=== PATIENT | female | born 1970 | race Hispanic/Latino ===

== ENCOUNTER 2018-04-17 08:52 | Emergency (ER) | payer BC ==
[2018-04-17 08:53] VITALS: BMI 35.2
[2018-04-17 09:17] VITALS: TEMP 97.7
--- NOTE | 2018-04-17 09:51 | ED PDOC ---
Arrival/HPI - General Chief Complaint: Female Genitourinary Time Seen by Provider: 04/17/18 09:35 Historian: Patient - History of Present Illness Narrative History of Present Illness (Text): 04/17/18 09:50 47 year old female, with no significant past medical history, presents to the emergency department complaining of continual vaginal bleeding since 03/31/18. Patient reports her last normal menstrual period was a month before that. Patient quit smoking 26 years ago, but occasionally drinks alcohol. Patient reports feeling weak, but denies any fever, chills, chest pain, palpitations, dyspnea on exertion, shortness of breath, abdominal pain, nausea, vomiting, diarrhea, genitourinary symptoms, headache, dizziness, lightheadedness, or any other complaints. PMD: Dr. Cm Time/Duration: Other (18 days) Symptom Onset: Gradual Symptom Course: Unchanged Activities at Onset: Light Context: Home Past Medical History - Provider Review Nursing Documentation Reviewed: Yes - Infectious Disease Hx of Infectious Diseases: None - Tetanus Immunization Tetanus Immunization: Unknown - Past Medical History Past Medical History: No Previous - Psychiatric Hx Depression: No Hx Emotional Abuse: No Hx Physical Abuse: No Hx Substance Use: Yes - Surgical History Hx Section: Yes - Anesthesia Hx Anesthesia: Yes Hx Anesthesia Reactions: No Hx Malignant Hyperthermia: No - Suicidal Assessment Feels Threatened In Home Enviroment: No Family/Social History - Physician Review Nursing Documentation Reviewed: Yes Family/Social History: No Known Family HX Smoking Status: Never Smoked Hx Alcohol Use: No Hx Substance Use: Yes Substance used: occasional marijuana Hx Substance Use Treatment: Yes Allergies/Home Meds Allergies/Adverse Reactions: Allergies No Known Allergies Allergy (Verified 09/25/13 10:41) Review of Systems - Physician Review All systems were reviewed & negative as marked: Yes - Review of Systems Constitutional: absent: Fevers, Other (Chills) Respiratory: absent: SOB Cardiovascular: absent: Chest Pain, PIERRE Gastrointestinal: absent: Abdominal Pain, Nausea, Vomiting Genitourinary Female: Vaginal Bleeding. absent: Dysuria, Frequency, Hematuria Neurological: Other (feels weak). absent: Headache, Dizziness (/lightheadedness ) Physical Exam Vital Signs Reviewed: Yes Vital Signs Temp Pulse Resp BP Pulse Ox 04/17/18 08:53 97.7 F 77 20 116/75 99 Temperature: Afebrile Blood Pressure: Normal Pulse: Regular Respiratory Rate: Normal Appearance: Positive for: Well-Appearing, Non-Toxic, Comfortable Pain Distress: None Mental Status: Positive for: Alert and Oriented X 3 - Systems Exam Head: Present: Atraumatic, Normocephalic Pupils: Present: PERRL Extroacular Muscles: Present: EOMI Conjunctiva: Present: Normal Mouth: Present: Moist Mucous Membranes Neck: Present: Normal Range of Motion Respiratory/Chest: Present: Clear to Auscultation, Good Air Exchange. No: Respiratory Distress, Accessory Muscle Use Cardiovascular: Present: Regular Rate and Rhythm, Normal S1, S2. No: Murmurs Abdomen: No: Tenderness, Distention, Peritoneal Signs Genitourinary/Pelvic Exam: Present: Other (refused due to bleeding) Back: Present: Normal Inspection Upper Extremity: Present: Normal Inspection. No: Cyanosis, Edema Lower Extremity: Present: Normal Inspection. No: Edema Neurological: Present: GCS=15, CN II-XII Intact, Speech Normal Skin: Present: Warm, Dry, Normal Color. No: Rashes Psychiatric: Present: Alert, Oriented x 3, Normal Insight, Normal Concentration Medical Decision Making ED Course and Treatment: 04/17/18 09:51 Impression: 47 year old female presents complaining of continual vaginal bleeding for the past 18 days (03/31/18) and feels weak. Plan: -- Labs -- HCG, Qualitative Urine -- Reassess and disposition Progress Notes: 04/17/18 11:[address] Nelson PROSTHETIC DENTIST who is aware and agrees with the plan. States he will see patient Saturday for outpatient follow up. On re-evaluation, patient is in no acute distress. I have discussed the results and plan with the patient, who expresses understanding. Patient in agreement with plan to be discharged home. Patient is stable for discharge. - Lab Interpretations Lab Results: 04/17/18 10:20 Lab Results 04/17/18 10:20: PT 11.5, INR 1.00, APTT 27.4 04/17/18 10:20: WBC 6.7, RBC 3.69, Hgb 11.4 L, Hct 34.1 L, MCV 92.4, MCH 30.9, MCHC 33.4, RDW 14.0, Plt Count 232, MPV 9.8, Gran % 67.2, Lymph % (Auto) 26.5, [place] % (Auto) 4.6, Eos % (Auto) 1.6, Baso % (Auto) 0.1, Gran # 4.50, Lymph # ( Auto) 1.8, [place] # (Auto) 0.3, Eos # (Auto) 0.1, Baso # (Auto) 0.01 04/17/18 10:00: Urine HCG, Qual Negative I have reviewed the lab results: Yes - Scribe Statement The provider has reviewed the documentation as recorded by the Kahliliberos Townsend Provider Scribe Attestation: All medical record entries made by the Scribe were at my direction and personally dictated by me. I have reviewed the chart and agree that the record accurately reflects my personal performance of the history, physical exam, medical decision making, and the department course for this patient. I have also personally directed, reviewed, and agree with the discharge instructions and disposition. Disposition/Present on Arrival - Present on Arrival Any Indicators Present on Arrival: No History of DVT/PE: No History of Uncontrolled Diabetes: No Urinary Catheter: No History of Decub. Ulcer: No History Surgical Site Infection Following: None - Disposition Have Diagnosis and Disposition been Completed?: Yes Diagnosis: Menorrhagia Disposition: HOME/ ROUTINE Disposition Time: 11:13 Patient Plan: Discharge Condition: GOOD Discharge Instructions (ExitCare): Heavy Periods Prescriptions: MedroxyPROGESTERone [Provera] 10 mg PO DAILY #10 tab Referrals: Aakash Cm MD [Primary Care Provider] - Follow up with primary Hu Nelson MD [Staff Provider] - Follow up with primary Forms: [employer] (Citizen [place])
[2018-04-17 10:29] LABS: BASO # 0.01 K/mm3 (0.0-2.0); BASO % 0.1 % (0.0-3.0); EOS # 0.1 (0.0-0.7); EOS % 1.6 % (1.5-5.0); GRAN # 4.5 (1.4-6.5); GRAN % 67.2 % (50.0-68.0); HEMOGLOBIN 11.4 g/dL (12.0-16.0); LYMPH # 1.8 (1.2-3.4); LYMPH % 26.5 % (22.0-35.0); MEAN CELL VOLUME 92.4 fl (80.0-105.0); MEAN CORPUSCULAR HEMOGLOBIN 30.9 pg (25.0-35.0); MEAN CORPUSCULAR HGB CONC 33.4 g/dl (31.0-37.0); MEAN PLATELET VOLUME 9.8 fl (7.0-11.0); MONO # 0.3 (0.1-0.6); MONO % 4.6 % (1.0-6.0); RBC 3.69 10^6/uL (3.5-6.1); WHITE BLOOD COUNT 6.7 10^3/ul (4.5-11.0)
[2018-04-17 10:37] LABS: PARTIAL THROMBOPLASTIN TIME 27.4 Seconds (25.1-36.5); PROTHROMBIN TIME 11.5 SECONDS (9.4-12.5)
[2018-04-17 11:28] VITALS: BP 117/74; PULSE 74; RESP 18; O2SAT 100
== END 2018-04-17 11:40 | disposition home or self-care (01) ==
LOC: ED 08:52
DX: N92.0 Excessive and frequent menstruation with regular cycle (principal)

== ENCOUNTER 2018-12-31 12:12 | Emergency (ER) | payer BC ==
[2018-12-31 12:35] VITALS: BMI 39.9
[2018-12-31 12:54] VITALS: RESP 18; TEMP 98.2; O2SAT 99
[2018-12-31] MEDS ORDERED: Sodium Chloride 0.9% 500 ML IV STA (13:19)
--- NOTE | 2018-12-31 14:13 | ED PDOC ---
Arrival/HPI - General Historian: Patient - History of Present Illness Narrative History of Present Illness (Text): 12/31/18 14:10 48-year-old female presents today with left lower quadrant abdominal pain for the past 4 to 5 days. Patient denies fevers or chills but states she has been feeling nauseous. Patient states she was having issues with bowel movement so she took a laxative and had some explosive diarrhea yesterday. Patient complaining of chronic bilateral hip pain. She denies vaginal bleeding or vaginal discharge. She denies urinary symptoms. Patient describes the abdominal pain as sharp cramping sensation located in the left lower quadrant of the abdomen that radiates. Patient states she took Motrin for pain at 1030 today and last night took an unknown medication from her for pain. <Laney Pantoja - Last Filed: 12/31/18 19:36> <Toney Sanford - Last Filed: 01/05/19 11:48> - General Chief Complaint: Abdominal Pain Time Seen by Provider: 12/31/18 12:25 Past Medical History - Provider Review Nursing Documentation Reviewed: Yes Primary Care Provider: Aakash Cm - Travel History Have you recently traveled outside [place] w/in the past 3 mons?: No - Infectious Disease Hx of Infectious Diseases: None - Tetanus Immunization Tetanus Immunization: Unknown - Past Medical History Past Medical History: No Previous - Cardiac Hx Cardiac Disorders: No - Pulmonary Hx Respiratory Disorders: No - Neurological Hx Neurological Disorder: No - HEENT Hx HEENT Disorder: No - Renal Hx Renal Disorder: No - Endocrine/Metabolic Hx Endocrine Disorders: No - Hematological/Oncological Hx Blood Disorders: No - Integumentary Hx Dermatological Disorder: No - Musculoskeletal/Rheumatological Hx Musculoskeletal Disorders: No - Gastrointestinal Hx Gastrointestinal Disorders: No - Genitourinary/Gynecological Hx Genitourinary Disorders: Yes Other/Comment: HX: ABNORMAL UTERINE BLEEDING - Psychiatric Hx Psychophysiologic Disorder: No Hx Substance Use: No - Surgical History Hx Section: Yes (X2) - Anesthesia Hx Anesthesia: Yes (SPINAL FOR X2) Hx Anesthesia Reactions: No Hx Malignant Hyperthermia: No - Suicidal Assessment Feels Threatened In Home Enviroment: No <Laney Pantoja - Last Filed: 12/31/18 19:36> Family/Social History - Physician Review Nursing Documentation Reviewed: Yes Family/Social History: Unknown Family HX Smoking Status: Current Some Days Smoker Hx Alcohol Use: No Hx Substance Use: No Substance used: n Hx Substance Use Treatment: Yes <RanjanLaney bass Saurabh - Last Filed: 12/31/18 19:36> Allergies/Home Meds <Laney Pantoja - Last Filed: 12/31/18 19:36> <DidiToney gomes - Last Filed: 01/05/19 11:48> Allergies/Adverse Reactions: Allergies No Known Allergies Allergy (Verified 12/31/18 12:55) Home Medications: Home Meds Medication Instructions Recorded Confirmed Ferrous Sulfate [Slow Fe] 142 mg PO DAILY 05/07/18 05/07/18 MedroxyPROGESTERone [Provera] 10 mg PO TID 05/07/18 05/07/18 Review of Systems - Review of Systems Constitutional: Fatigue. absent: Fevers Respiratory: absent: SOB, Cough Cardiovascular: absent: Chest Pain, Palpitations Gastrointestinal: Abdominal Pain, Nausea. absent: Constipation, Vomiting, Hematochezia, Hematemesis, Food Intolerance Genitourinary Female: absent: Dysuria, Frequency, Hematuria Musculoskeletal: Arthralgias (Chronic bilateral hip pain), Back Pain (Low back pain) Skin: absent: Rash, Pruritis Neurological: absent: Headache, Dizziness Psychiatric: absent: Anxiety, Depression <Laney Pantoja T - Last Filed: 12/31/18 19:36> Physical Exam Vital Signs Reviewed: Yes Vital Signs Temp Pulse Resp BP Pulse Ox 12/31/18 13:50 75 18 128/65 99 12/31/18 12:53 98.2 F 88 18 132/71 99 12/31/18 12:35 98 F 78 18 111/72 98 Temperature: Afebrile Blood Pressure: Normal Pulse: Regular Respiratory Rate: Normal Appearance: Positive for: Well-Appearing, Non-Toxic, Comfortable Pain Distress: None Mental Status: Positive for: Alert and Oriented X 3 - Systems Exam Head: Present: Atraumatic Mouth: Present: Moist Mucous Membranes Neck: Present: Normal Range of Motion Respiratory/Chest: Present: Clear to Auscultation Cardiovascular: Present: Regular Rate and Rhythm Abdomen: Present: Tenderness (LLQ tenderness, + suprapubic tenderness), Normal Bowel Sounds. No: Distention, Peritoneal Signs, Rebound, Guarding Back: Present: Normal Inspection. No: CVA Tenderness, Midline Tenderness, Paraspinal Tenderness Upper Extremity: Present: Normal Inspection, Normal ROM Lower Extremity: Present: Normal Inspection, Normal ROM Neurological: Present: GCS=15, Speech Normal Skin: Present: Warm, Dry, Normal Color. No: Rashes Psychiatric: Present: Alert, Oriented x 3 <Laney Pantoja - Last Filed: 12/31/18 19:36> Vital Signs Temp Pulse Resp BP Pulse Ox 12/31/18 15:09 69 18 125/61 99 12/31/18 13:50 75 18 128/65 99 12/31/18 12:53 98.2 F 88 18 132/71 99 12/31/18 12:35 98 F 78 18 111/72 98 <Toney Sanford - Last Filed: 01/05/19 11:48> Medical Decision Making ED Course and Treatment: 12/31/18 14:12 Patient is nontoxic well appearing with stable vital signs presenting with left lower quadrant and suprapubic abdominal pain CBC wnl CMP wnl Lipase wnl Urinalysis: no leukocytes CAT scan: FINDINGS: LOWER THORAX: Unremarkable. LIVER: Hepatic steatosis. No focal masses. No intrahepatic bile duct dilatation or perihepatic ascites. Focal fatty sparing adjacent to the falciform ligament. GALLBLADDER AND BILE DUCTS: Unremarkable. PANCREAS: Unremarkable. No gross lesion or ductal dilatation. SPLEEN: Mild splenomegaly orthogonal measurements 4.8 x 12.9 x 12.1 cm. ADRENALS: Unremarkable. No mass. KIDNEYS AND URETERS: Unremarkable. No hydronephrosis. No solid mass. VASCULATURE: Unremarkable. No aortic aneurysm. No atherosclerotic calcification or mural plaque present. BOWEL: Acute sigmoid diverticulitis. The acute inflammatory components extend from the distal descending colon to the mid sigmoid colon with sparing of the rectum. No evidence of loculated air, free air or drainable collection. APPENDIX: A normal appendix is visualized in it's entirety. PERITONEUM: Unremarkable. No free fluid. No free air. LYMPH NODES: Unremarkable. No enlarged lymph nodes. BLADDER: Unremarkable. REPRODUCTIVE: Unremarkable uterus. Likely left adnexal cyst 2.3 cm. BONES: No acute fracture. OTHER FINDINGS: None. IMPRESSION: Acute, uncomplicated segmental diverticulitis involving distal descending colon and adjacent sigmoid colon. Additional benign and/or incidental findings described above. Patient reassessment: pt feeling better after medications; vitals stable. all results discussed in depth with patient; pt started on cipro and flagyl. pt was advised to f/u with the GI doctor within the next 2 days. pt was advised immediate return if symptoms worsen,persist or if new symptoms develop, pt is requesting information to dr. Irvin. Discussed all results with patient in depth Impression: Diverticulitis Motrin every 6 hours as needed for pain Cipro one tablet twice daily x10 days Flagyl one tablet 3 timesdaily x10 days Follow-up with a GI specialist within the next 2 days Follow up with primary care physician within the next 2 days Return immediately if symptoms worsen persist or if new symptoms develop: High fevers, increasing pain, vomiting, diarrhea or any other concerning symptoms develop Reassessment Condition: Re-examined, Improved - RAD Interpretation Radiology Orders: 12/31/18 13:36 ABD & PELVIS IV CONTRAST ONLY [CT] Stat - Medication Orders Current Medication Orders: Discontinued Medications Sodium Chloride (Sodium Chloride 0.9%) 500 mls @ 999 mls/hr IV .Q31M STA Stop: 12/31/18 13:49 Last Admin: 12/31/18 14:00 Dose: 999 mls/hr eMAR Start Stop Document 12/31/18 14:00 LA (Rec: 12/31/18 14:00 LA [facility] [place]-ER-20) Intravenous Solution Start Date 12/31/18 Start Time 14:00 End Date 12/31/18 End time 14:32 Total Infusion Time 32 <Laney Pantoja T - Last Filed: 12/31/18 19:36> - Lab Interpretations Microbiology Results: Microbiology Results 12/31/18 13:54 Urine Random Urine Culture - Final No Growth (<1,000 CFU/ML) Lab Results: Total Bilirubin 0.6 mg/dL (0.2-1.3) 12/31/18 13:54 AST 22 U/L (14-36) 12/31/18 13:54 ALT 16 U/L (7-56) 12/31/18 13:54 Alkaline Phosphatase 59 U/L (38-126) 12/31/18 13:54 Total Protein 7.7 g/dL (5.8-8.3) 12/31/18 13:54 Albumin 4.5 g/dL (3.0-4.8) 12/31/18 13:54 Globulin 3.2 gm/dL 12/31/18 13:54 Albumin/Globulin Ratio 1.4 (1.1-1.8) 12/31/18 13:54 Lipase 24 U/L (23-300) 12/31/18 13:54 Urine Color Straw (YELLOW) 12/31/18 13:54 Urine Appearance Slight-cloudy (CLEAR) 12/31/18 13:54 Urine pH 6.0 (4.7-8.0) 12/31/18 13:54 Ur Specific [place] <= 1.005 (1.005-1.035) 12/31/18 13:54 Urine Protein Negative mg/dL (<30 mg/dL) 12/31/18 13:54 Urine Glucose (UA) Negative mg/dL (NEGATIVE) 12/31/18 13:54 Urine Ketones Negative mg/dL (NEGATIVE) 12/31/18 13:54 Urine Blood Moderate (NEGATIVE) H 12/31/18 13:54 Urine Nitrate Negative (NEGATIVE) 12/31/18 13:54 Urine Bilirubin Negative (NEGATIVE) 12/31/18 13:54 Urine Urobilinogen 0.2 E.U./dL (<1 E.U./dL) 12/31/18 13:54 Ur Leukocyte Esterase Negative Joesph/uL (NEGATIVE) 12/31/18 13:54 Urine RBC 15 - 20 /hpf (0-2) H 12/31/18 13:54 Urine WBC 1 - 3 /hpf (0-6) 12/31/18 13:54 Ur Epithelial Cells Many /hpf (0-5) H 12/31/18 13:54 Amorphous Sediment Few /hpf (NONE) 12/31/18 13:54 Urine Bacteria Many /hpf (NONE) 12/31/18 13:54 Urine Other Fiber /hpf 12/31/18 13:54 - RAD Interpretation Radiology Orders: 12/31/18 13:36 ABD & PELVIS IV CONTRAST ONLY [CT] Stat - Medication Orders Current Medication Orders: Discontinued Medications Ciprofloxacin (Cipro) 500 mg PO ONCE STA; Protocol Stop: 12/31/18 16:58 Last Admin: 12/31/18 17:21 Dose: 500 mg Sodium Chloride (Sodium Chloride 0.9%) 500 mls @ 999 mls/hr IV .Q31M STA Stop: 12/31/18 13:49 Last Admin: 12/31/18 14:00 Dose: 999 mls/hr eMAR Start Stop Document 12/31/18 14:00 LA (Rec: 12/31/18 14:00 LA [facility]-20) Intravenous Solution Start Date 12/31/18 Start Time 14:00 End Date 12/31/18 End time 14:32 Total Infusion Time 32 Ketorolac Tromethamine (Toradol) 30 mg IVP STAT STA Stop: 12/31/18 16:00 Last Admin: 12/31/18 16:22 Dose: 30 mg MAR Pain Assessment Document 12/31/18 16:22 LA (Rec: 12/31/18 16:23 LA [facility] [place]-20) Pain Reassessment Is this a pain reassessment? Yes Sleep Is patient sleeping during reassessment? No Presence of Pain Presence of Pain Yes Pain Scale Used Protocol: PSCALES Pain Scale Used Numeric Location Left, Right or Bilateral Left Upper or Lower Lower Pain Location Body Site Abdomen Description Intensity of Pain at present 4 IVP Administration Document 12/31/18 16:22 LA (Rec: 12/31/18 16:23 LA [facility] [place]-20) Charges for Administration # of IVP Administrations 1 Metronidazole (Flagyl) 500 mg PO STAT STA; Protocol Stop: 12/31/18 16:58 Last Admin: 12/31/18 17:21 Dose: 500 mg Ondansetron HCl (Zofran Inj) 4 mg IVP STAT STA Stop: 12/31/18 15:57 Last Admin: 12/31/18 16:32 Dose: 4 mg IVP Administration Document 12/31/18 16:32 [place] (Rec: 12/31/18 16:32 [place] [facility] Charges for Administration # of IVP Administrations 1 <Toney Sanford - Last Filed: 01/05/19 11:48> - 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 <Toney Sanford - Last Filed: 01/05/19 11:48> Disposition/Present on Arrival - Present on Arrival Any Indicators Present on Arrival: No History of DVT/PE: No History of Uncontrolled Diabetes: No Urinary Catheter: No History of Decub. Ulcer: No History Surgical Site Infection Following: None - Disposition Have Diagnosis and Disposition been Completed?: Yes Disposition Time: 16:36 Patient Plan: Discharge <RanjanElpidio bassqing Wiley - Last Filed: 12/31/18 19:36> <Toney Sanford - Last Filed: 01/05/19 11:48> - Disposition Diagnosis: Diverticulitis Disposition: HOME/ ROUTINE Condition: GOOD Discharge Instructions (ExitCare): Diverticulitis (DC) Additional Instructions: Motrin every 6 hours as needed for pain Cipro one tablet twice daily x10 days Flagyl one tablet 3 timesdaily x10 days Follow-up with a GI specialist within the next 2 days Follow up with primary care physician within the next 2 days Return immediately if symptoms worsen persist or if new symptoms develop: High fevers, increasing pain, vomiting, diarrhea or any other concerning symptoms develop Prescriptions: Ciprofloxacin [Cipro] 500 mg PO BID #20 tab Ibuprofen [Motrin] 600 mg PO Q6H PRN #20 tab PRN Reason: pain/fever reduction Metronidazole [Flagyl] 500 mg PO TID #30 tab Referrals: Aakash Cm MD [Family Provider] - Follow up with primary Mary Ha MD [Staff Provider] - Follow up with primary Arvin Dallas MD [Staff Provider] - Follow up with primary Mendoza Rey MD [Staff Provider] - Follow up with primary Haile Irvin MD [Medical Doctor] - Follow up with primary Forms: [employer] ([place]), WORK NOTE
[2018-12-31 14:16] LABS: BASO # 0.02 K/mm3 (0.0-2.0); BASO % 0.2 % (0.0-3.0); EOS % 0.4 % (1.5-5.0); HEMOGLOBIN 12.2 g/dL (12.0-16.0); LYMPH # 1.6 (1.2-3.4); MEAN CELL VOLUME 92.1 fl (80.0-105.0); MEAN CORPUSCULAR HGB CONC 32.6 g/dl (31.0-37.0); MEAN PLATELET VOLUME 10.3 fl (7.0-11.0); MONO # 0.6 (0.1-0.6); MONO % 6.2 % (1.0-6.0); RBC 4.06 10^6/uL (3.5-6.1); RED CELL DISTRIBUTION WIDTH 13.5 % (11.5-14.5)
[2018-12-31 14:17] LABS: URINE BILIRUBIN NEGATIVE (NEGATIVE); URINE BLOOD MODERATE (NEGATIVE); URINE GLUCOSE (UA) NEGATIVE (NEGATIVE); URINE LEUKOCYTE ESTERASE NEGATIVE Leu/uL (NEGATIVE); URINE PROTEIN NEGATIVE mg/dL (<30 mg/dL); URINE UROBILINOGEN 0.2 E.U./dL (<1 E.U./dL)
[2018-12-31 14:18] LABS: URINE APPEARANCE SLIGHT-CLOUDY (CLEAR); URINE COLOR STRAW (YELLOW)
[2018-12-31 14:26] LABS: URINE AMORPHOUS SEDIMENT FEW /hpf; URINE BACTERIA MANY /hpf; URINE EPITHELIAL CELLS MANY /hpf (0-5); URINE RBC 15 - 20 /hpf (0-2)
[2018-12-31 14:28] LABS: ALB/GLOB RATIO 1.4 (1.1-1.8); ALBUMIN 4.5 g/dL (3.0-4.8); ALT/SGPT 16 U/L (7-56); AST/SGOT 22 U/L (14-36); BLOOD UREA NITROGEN 9 mg/dL (7-21); CALCIUM 9.2 mg/dL (8.4-10.5); GFR NON-AFRICAN AMERICAN > 60
[2018-12-31 14:53] LABS: LIPASE 24 U/L (23-300)
[2018-12-31 15:10] VITALS: BP 125/61; PULSE 69
[2018-12-31] MEDS ORDERED: Morphine 4 mg/ml ISec IVP STA (15:56)
--- NOTE | 2018-12-31 15:58 | CT ---
Date of service: 12/31/2018 PROCEDURE: CT Abdomen and Pelvis with contrast HISTORY: llq pain and b/l hip pain COMPARISON: None. TECHNIQUE: Intravenous contrast dose: Radiation dose: Total exam DLP = <inf_radiation_dlp> mGy-cm. This CT exam was performed using one or more of the following dose reduction techniques: Automated exposure control, adjustment of the mA and/or kV according to patient size, and/or use of iterative reconstruction technique. FINDINGS: LOWER THORAX: Unremarkable. LIVER: Hepatic steatosis. No focal masses. No intrahepatic bile duct dilatation or perihepatic ascites. Focal fatty sparing adjacent to the falciform ligament. GALLBLADDER AND BILE DUCTS: Unremarkable. PANCREAS: Unremarkable. No gross lesion or ductal dilatation. SPLEEN: Mild splenomegaly orthogonal measurements 4.8 x 12.9 x 12.1 cm. ADRENALS: Unremarkable. No mass. KIDNEYS AND URETERS: Unremarkable. No hydronephrosis. No solid mass. VASCULATURE: Unremarkable. No aortic aneurysm. No atherosclerotic calcification or mural plaque present. BOWEL: Acute sigmoid diverticulitis. The acute inflammatory components extend from the distal descending colon to the mid sigmoid colon with sparing of the rectum. No evidence of loculated air, free air or drainable collection. APPENDIX: A normal appendix is visualized in it's entirety. PERITONEUM: Unremarkable. No free fluid. No free air. LYMPH NODES: Unremarkable. No enlarged lymph nodes. BLADDER: Unremarkable. REPRODUCTIVE: Unremarkable uterus. Likely left adnexal cyst 2.3 cm. BONES: No acute fracture. OTHER FINDINGS: None. IMPRESSION: Acute, uncomplicated segmental diverticulosis involving distal descending colon and adjacent sigmoid colon. Additional benign and/or incidental findings described above.
== END 2018-12-31 17:55 | disposition home or self-care (01) ==
LOC: ED 12:12
DX: K57.92 Diverticulitis of intestine, part unspecified, without perforation or abscess without bleeding (principal)
CPT/HCPCS: 74177; 80053; 81001; 81025; 83690; 85025; 87086; 96361; 96374; 96375; 99284; J1885; J2405; J7040; Q9967